=== PATIENT | female | born 1960 | race Caucasian/White ===

== ENCOUNTER 2023-08-10 15:15 | Emergency (ER) | payer MEDICARE, SELFPAY ==
[2023-08-10 15:23] VITALS: BP 109/77; PULSE 73; RESP 17; TEMP 36.7; O2SAT 95; BMI 23.3
--- NOTE | 2023-08-10 15:30 | ED_ITS ---
HPI - Extremity Problem General: Chief complaint: Extremity Injury, Lower Stated complaint: Fell Time Seen by Provider: 08/10/23 15:29 History of Present Illness: A 63-year-old female comes in today for evaluation of injury sustained from a fall yesterday. Patient was going into the post office and had some packages in the arm and tripped over a stack of rugs that was being changed out at the office. Patient reports landing on outstretched arms and her left knee. Since then patient has had pain to the left knee, right shoulder, and bilateral hips. Patient has been ambulatory. Patient appears nontoxic. Patient appears in mild to moderate pain. Review of Systems General: Reports: 10 or more systems reviewed and unremarkable except in HPI and below Musc: Reports: extremity pain (Bilateral hips, right elbow) and joint pain (Left hip and knee, right shoulder); Denies: joint swelling Physical Exam Const: COMMON NORMALS: alert HENMT: COMMON NORMALS: normocephalic HEAD & SCALP: normocephalic Neck/C-Spine: COMMON NORMALS: full ROM CERVICAL SPINE: No Cervical spine tenderness Resp: COMMON NORMALS: normal respiratory effort Cardio: COMMON NORMALS: regular rate RATE: regular rate GI: COMMON NORMALS: non-tender Back/Pelvis: COMMON NORMALS: thoracic and lumbar spine normal to inspection LUMBAR SPINE/LOWER BACK: Yes paraspinal muscle tenderness Extremity: COMMON NORMALS: full ROM RIGHT UPPER EXTREMITY: Yes elbow joint (Dorsal tenderness) LEFT LOWER EXTREMITY: Yes hip joint (Muscle tenderness) Left hip: Yes inspection, Yes palpation and Yes ROM and Yes knee joint (Patella tenderness) Left knee: Yes inspection, Yes palpation, Yes ROM and Yes neurovascular exam Neuro: SENSORIUM/ORIENTATION: Yes alert Skin: COMMON NORMALS: turgor normal GENERAL SKIN EXAM: turgor normal Course Vital Signs: Vital signs: Vital Signs Temperature 98.1 F 08/10/23 15:23 Pulse Rate 73 08/10/23 15:23 Respiratory Rate 17 08/10/23 15:23 Blood Pressure 109/77 08/10/23 15:23 Pulse Oximetry 95 08/10/23 15:23 Oxygen Delivery Me thod Room Air 08/10/23 15:23 MDM - Extremity (Nontraumatic) Medical Decision Making Patient comes in for evaluation of injury sustained during a fall yesterday. Patient reports pain to the right shoulder, right elbow, left knee, and bilateral hips. Patient moves all extremities well. Patient is weightbearing. No obvious swelling or redness is noted to the joints. No ecchymosis or bruising is noted. No abrasions are noted. Differential diagnosis includes but not limited to contusions, fracture, muscle strain. X-rays of the lumbar spine, pelvis, knee, shoulder, and elbow showed no acute abnormality. Radiology to review for final results. Patient was recommended to use acetaminophen and ibuprofen for pain. Patient was also recommended uses ice or heat for further pain relief. Patient reported understanding agreed to plan. XR interpretation done by ED provider, pending radiology final review Discharge Plan Discharge Patient Disposition: Home Clinical Impression: Acute hip pain, bilateral, Arm pain, right Fall from slip, trip, or stumble Qualifiers: Encounter type: initial encounter Qualified Code(s): W01.0XXA - Fall on same level from slipping, tripping and stumbling without subsequent striking against object, initial encounter Knee pain, left Qualifiers: Chronicity: acute Qualified Code(s): M25.562 - Pain in left knee Condition: Stable Prescriptions: No Action metformin 500 mg tablet 500 mg PO DAILY amlodipine 5 mg tablet 5 mg PO DAILY hydrocodone-acetaminophen 10-325 mg tablet 1 tab PO TID PRN (Reason: Pain) levothyroxine 125 mcg Tablet 125 mcg PO DAILY Benadryl Allergy 25 mg Tablet 12.5 mg PO TID PRN (Reason: ALLERGIES) azelastine 137 mcg (0.1 %) aerosol,spray 2 spray INTRANASAL BID diazepam 5 mg tablet 2.5 mg PO PRN Premarin 0.3 mg tablet 0.3 mg PO DAILY SF 5000 Plus 1.1 % cream See Rx Instructions .ROUTE .COMPLEX Rx Instructions: USE ONCE daily in place of general toothpaste. BRUSH with pea-sized AMOUNT FOR TWO minutes, expectorate AND DO not RINSE. Discharge Orders: Discharge ED (Routine); Ordered 08/10/23 Ordered By: Cortez Salinas Discharge Diet: Usual diet Discharge Activity: Increase activity as tolerated Patient Instructions: Musculoskeletal Pain (ED) Activity Restrictions/Additional Instructions: Home and rest. Activity as tolerated. Gentle stretching and range of motion exercises. Use ice or heat to help with pain. Use acetaminophen and ibuprofen for further pain relief. Follow-up with primary care as needed. Return to ED for new concerns or worsening symptoms. Coding Level of Care Code ED Process Development Associate for Navdeep Montoya
--- NOTE | 2023-08-10 15:34 | XRR_ITS ---
PROCEDURE INFORMATION: Exam: XR Pelvis Exam date and time: 08/10/2023 3:44 PM Age: 63 years old Clinical indication: Injury or trauma; Fall; Other: Unknown; Additional info: Fall injury TECHNIQUE: Imaging protocol: Radiologic exam of the pelvis. Views: 1 or 2 view. COMPARISON: CR XR lumbar spine 2-3V* [id number] 08/10/2023 3:44 PM FINDINGS: Bones/joints: Unremarkable. No acute fracture. Soft tissues: Unremarkable. XR/XR pelvis 1-2V* [id number] IMPRESSION: No acute findings.
--- NOTE | 2023-08-10 15:34 | XRR_ITS ---
PROCEDURE INFORMATION: Exam: XR Right Elbow Exam date and time: 08/10/2023 3:44 PM Age: 63 years old Clinical indication: Injury or trauma; Fall; Other: Unknown; Additional info: Fall, injury TECHNIQUE: Imaging protocol: Radiologic exam of the right elbow. Views: 3 or more views. COMPARISON: CR (CHEST, ) 08/10/2023 3:44 PM FINDINGS: Bones/joints: Negative for acute bony abnormality. Soft tissues: Normal. XR/XR elbow RT min 3V* [id number] IMPRESSION: No acute findings.
--- NOTE | 2023-08-10 15:34 | XRR_ITS ---
PROCEDURE INFORMATION: Exam: XR Right Shoulder Exam date and time: 08/10/2023 3:44 PM Age: 63 years old Clinical indication: Injury or trauma; Fall; Other: Unknown; Additional info: Fall injury TECHNIQUE: Imaging protocol: Radiologic exam of the right shoulder. Views: 2 or more views. COMPARISON: CR ( EX, ) 08/10/2023 3:44 PM FINDINGS: Bones/joints: Negative for acute bony abnormality. Soft tissues: Normal. XR/XR shoulder RT min 2V* [id number] IMPRESSION: No acute findings.
--- NOTE | 2023-08-10 15:34 | XRR_ITS ---
PROCEDURE INFORMATION: Exam: XR Left Knee Exam date and time: 08/10/2023 3:44 PM Age: 63 years old Clinical indication: Injury or trauma; Fall; Other: Unknown TECHNIQUE: Imaging protocol: Radiologic exam of the left knee. Views: 3 views. COMPARISON: No relevant prior studies available. FINDINGS: Bones/joints: Normal. Soft tissues: Normal. XR/XR knee LT 3V* [id number] IMPRESSION: No acute findings.
--- NOTE | 2023-08-10 15:36 | XRR_ITS ---
PROCEDURE INFORMATION: Exam: XR Lumbosacral Spine Exam date and time: 08/10/2023 3:44 PM Age: 63 years old Clinical indication: Injury or trauma; Fall; Other: Unknown; Additional info: Fall injury TECHNIQUE: Imaging protocol: Radiologic exam of the lumbosacral spine. Views: 2 or 3 views. COMPARISON: CR (PELVIS, ) 08/10/2023 3:44 PM FINDINGS: Bones/joints: Narrowing of the intervertebral disc space is seen at the L4-L5 level. Generalized osteopenia is seen. No acute fracture. There is mild spondylolisthesis L4-L5 Soft tissues: Surgical sutures are seen in the central pelvis. XR/XR lumbar spine 2-3V* [id number] IMPRESSION: 1. No acute findings. 2. Osteopenia and osteoarthritis. 3. Spondylolisthesis L4-L5
--- NOTE | 2023-08-10 15:59 | PC.PHAR ---
Addendum entered by Zahra Smith 08/10/23 16:05: BOTH PHARMACIES STATE PT DOES NOT WANT TO DISCLOSE HER LIST OF ALLERGIES. 08/10/23 Original Note: PT STATES HAS A LONG LIST OF ALLERGIES SHE DID NOT WANT TO GO OVER. I REACHED OUT TO HER CURRENT PHARMACY WHO HAS NO ALLERGIES ON FILE. 08/10/23
== END 2023-08-10 16:35 | disposition home or self-care (01) ==
PROVIDERS: Emergency Provider Nurse Practitioner Family
DX: M25.562 Pain in left knee (principal); M25.551 Pain in right hip; M25.552 Pain in left hip; M79.601 Pain in right arm; Z79.84 Long term (current) use of oral hypoglycemic drugs; W18.09XA Striking against other object with subsequent fall, initial encounter; Y92.242 Post office as the place of occurrence of the external cause
CPT/HCPCS: 72100; 72170; 73030; 73080; 73562; 99284

== ENCOUNTER → 2023-10-02 15:35 | Outpatient (BNVA) | payer MEDICARE, SELFPAY | PROVIDERS: Visit Provider Nurse Practitioner | DX: R30.0 Dysuria (principal); N12 Tubulo-interstitial nephritis, not specified as acute or chronic | CPT/HCPCS: 81000 ==